=== PATIENT | female | born 1975 | race Caucasian/White ===

== ENCOUNTER 2018-05-06 09:48 | Emergency (ER) | payer OTHER ==
[2018-05-06 09:48] VITALS: BMI 28.3
[2018-05-06] MEDS ORDERED: Sodium Chloride 0.9% 1,000 ML IV STA (10:38)
[2018-05-06 11:03] LABS: BASO % 0.3 % (0.0-2.0); EOS % 0.1 % (0.0-4.0); HEMOGLOBIN 13.9 g/dL (12.0-16.0); LYMPH # 1.3 K/uL (1.0-4.3); LYMPH % 9.2 % (20.0-40.0); MEAN CELL VOLUME 86.6 fl (81.0-99.0); MEAN CORPUSCULAR HEMOGLOBIN 30.4 pg (27.0-31.0); MEAN CORPUSCULAR HGB CONC 35.1 g/dL (33.0-37.0); MEAN PLATELET VOLUME 8.6 fl (7.2-11.7); MONO # 0.6 K/uL (0.0-0.8); MONO % 4.1 % (0.0-10.0); NEUT # 12.3 K/uL (1.8-7.0); NEUT % 86.3 % (50.0-75.0); NRBC % 0.1 % (0.0-0.0); PLATELET COUNT 276 K/uL (130-400); RBC 4.59 Mil/uL (3.80-5.20); RED CELL DISTRIBUTION WIDTH 13.1 % (11.5-14.5); WHITE BLOOD COUNT 14.2 K/uL (4.8-10.8)
[2018-05-06 11:19] LABS: ALB/GLOB RATIO 1.1 (1.0-2.1); ALBUMIN 4.1 g/dL (3.5-5.0); ALT/SGPT 43 U/L (9-52); AST/SGOT 33 U/L (14-36); BLOOD UREA NITROGEN 8 mg/dl (7-17); CALCIUM 9.3 mg/dL (8.4-10.2); GFR NON-AFRICAN AMERICAN > 60; LIPASE 60 U/L (23-300)
--- NOTE | 2018-05-06 12:01 | ED PDOC ---
HPI:Nausea, Vomiting, Diarrhea History Per: Patient (Ms. Mireles is a 42 yo female who presents to the ER because of persistent nausea and vomiting that started 3 day ago. Patient the progressively started feeling tired, weak and that her head has been hurting and feeling heavy. Patient denies sick contact. She took one tab of nexium last night without improve) <Maria L Soriano - Last Filed: 05/06/18 15:06> <Shyam Mccoy Y - Last Filed: 05/06/18 18:20> Time Seen by Provider: 05/06/18 10:23 Chief Complaint (Nursing): Dizziness/Lightheaded Past Medical History Reviewed: Historical Data, Nursing Documentation, Vital Signs Vital Signs: Last Vital Signs Temp 97.8 F 05/06/18 11:39 Pulse 83 05/06/18 09:55 Resp 17 05/06/18 09:55 BP 127/86 05/06/18 11:07 Pulse Ox 99 05/06/18 09:55 - Medical History PMH: Gastritis Denies: Chronic Kidney Disease - Family History Family History: States: No Known Family Hx - Immunization History Hx Tetanus Toxoid Vaccination: No Hx Influenza Vaccination: No Hx Pneumococcal Vaccination: No <Maria L Soriano - Last Filed: 05/06/18 15:06> Vital Signs: Last Vital Signs Temp 98.6 F 05/06/18 16:09 Pulse 88 05/06/18 16:09 Resp 16 05/06/18 16:09 BP 125/81 05/06/18 16:09 Pulse Ox 100 05/06/18 16:09 <Shyam Mccoy Y - Last Filed: 05/06/18 18:20> - Allergies Allergies/Adverse Reactions: Allergies Allergy/AdvReac Type Severity Reaction Status Date / Time Penicillins Allergy ANAPHYLAXIS Verified 05/06/18 10:27 Review of Systems ROS Statement: Except As Marked, All Systems Reviewed And Found Negative Constitutional: Negative for: Fever, Chills Cardiovascular: Negative for: Chest Pain Gastrointestinal: Positive for: Nausea, Abdominal Pain Neurological: Positive for: Headache <Maria L Soriano - Last Filed: 05/06/18 15:06> Physical Exam - Reviewed Nursing Documentation Reviewed: Yes Vital Signs Reviewed: Yes - Physical Exam Appears: Positive for: Well, Non-toxic, No Acute Distress Head Exam: Positive for: ATRAUMATIC, NORMAL INSPECTION, NORMOCEPHALIC Skin: Positive for: Normal Color, Warm, DRY Eye Exam: Positive for: EOMI, Normal appearance, PERRL ENT: Positive for: Normal ENT Inspection Neck: Positive for: Normal, Painless ROM Cardiovascular/Chest: Positive for: Regular Rate, Rhythm Respiratory: Positive for: CNT, Normal Breath Sounds Gastrointestinal/Abdominal: Positive for: Normal Exam, Soft Back: Positive for: Normal Inspection Extremity: Positive for: Normal ROM Neurologic/Psych: Positive for: Alert, Oriented <Maria L Soriano - Last Filed: 05/06/18 15:06> - Laboratory Results Result Diagrams: 05/06/18 10:50 05/06/18 10:50 - ECG O2 Sat by Pulse Oximetry: 99 <Maria L Soriano - Last Filed: 05/06/18 15:06> - Laboratory Results Result Diagrams: 05/06/18 10:50 05/06/18 10:50 <Shyam Mccoy - Last Filed: 05/06/18 18:20> Disposition - Disposition Disposition: Transfer of Care Disposition Time: 15:06 Patient Signed Over To: Shyam Mccoy <Maria L Soriano - Last Filed: 05/06/18 15:06> <Shyam Mccoy - Last Filed: 05/06/18 18:20> - Clinical Impression Clinical Impression: Dizziness - Disposition Condition: STABLE Forms: [employer] (Kyrgyz)
[2018-05-06 12:12] LABS: BANDS 2 % (0-2); LYMPHOCYTE 6 % (20-50); MONOCYTE 6 % (0-10); NEUTROPHIL 82 % (42-75); PLATELET ESTIMATE NORMAL (NORMAL); REACTIVE LYMPHOCYTES 4 % (0-0); TOTAL CELLS COUNTED 100
[2018-05-06] MEDS ORDERED: Sodium Chloride 0.9% 50 ML IV ONE (12:35)
[2018-05-06] MEDS ORDERED: Iohexol 300 100 ML IJ ONE (12:35)
--- NOTE | 2018-05-06 13:34 | CT ---
Date of service: 05/06/2018 PROCEDURE: CT Abdomen and Pelvis with contrast HISTORY: bilateral LQ tenderness with elevated WBC COMPARISON: None. TECHNIQUE: Contrast dose: 95 mL Omnipaque 300. Radiation dose: Total exam DLP = 532.7 mGy-cm. This CT exam was performed using one or more of the following dose reduction techniques: Automated exposure control, adjustment of the mA and/or kV according to patient size, and/or use of iterative reconstruction technique. FINDINGS: LOWER THORAX: Unremarkable. LIVER: Hepatic steatosis. No gross lesion or ductal dilatation. GALLBLADDER AND BILE DUCTS: Distended gallbladder with wall thickening/edema. PANCREAS: Unremarkable. No gross lesion or ductal dilatation. SPLEEN: Unremarkable. ADRENALS: Unremarkable. No mass. KIDNEYS AND URETERS: Unremarkable. No hydronephrosis. No solid mass. VASCULATURE: Unremarkable. No aortic aneurysm. BOWEL: Unremarkable. No obstruction. No gross mural thickening. APPENDIX: Normal appendix. PERITONEUM: Small fat containing umbilical hernia. No free fluid. No free air. LYMPH NODES: Unremarkable. No enlarged lymph nodes. BLADDER: Unremarkable. REPRODUCTIVE: Prominent low-density tubular appearing structures in both adnexa. 1.9 cm low-density structure in the left ovary. BONES: No acute fracture. OTHER FINDINGS: None. IMPRESSION: Distended gallbladder with questionable wall thickening/edema. Gallbladder ultrasound can be obtained for further evaluation as clinically warranted. Prominent low-density tubular appearing structures in both adnexa may represent hydrosalpinx. 1.9 cm low-density structure in the left ovary. Pelvic ultrasound can be obtained for further evaluation as clinically warranted.
[2018-05-06 16:09] VITALS: O2SAT 100
--- NOTE | 2018-05-06 17:19 | US ---
Date of service: 05/06/2018 HISTORY: thickened GB on CT; elevated WBC COMPARISON: None. TECHNIQUE: Sonographic evaluation of the abdomen. FINDINGS: LIVER: Measures 13.7 cm. Normal echogenicity of the liver parenchyma. No mass. No intrahepatic bile duct dilatation. GALLBLADDER: Multiple gallstones present. No pericholecystic fluid or thickened gallbladder wall noted. No positive sonographic Valente sign present. COMMON BILE DUCT: Measures 4 mm. No stones. No dilatation. PANCREAS: Not well visualized-obscuring bowel gas. RIGHT KIDNEY: Measures 11.9 x 4.6 x 4.7cm. Normal echogenicity. No calculus, or mass. There is mainly right extra renal the mildly intrarenal pelviectasis. No prominent peripheral right caliectasis noted. LEFT KIDNEY: Measures 13.0 x 4.9 x 4.3 cm.Cm. Normal echogenicity. No calculus, mass, or hydronephrosis. SPLEEN: Normal in size and contour. No mass. AORTA: No gross aneurysm. IVC: Gross pathology noted OTHER FINDINGS: None. IMPRESSION: Multiple gallstones present. No gallbladder wall thickening or pericholecystic fluid. No positive sonographic Valente sign. No dilated ducts. Other findings as above.
--- NOTE | 2018-05-06 18:39 | ED PDOC ---
- Laboratory Results Result Diagrams: 05/06/18 10:50 05/06/18 10:50 - ECG O2 Sat by Pulse Oximetry: 100 Medical Decision Making Medical Decision Making: Time: 15:00 Patient care endorsed from Dr. Soriano to story writer pending US. Time: 17:17 FINDINGS: LIVER: Measures 13.7 cm. Normal echogenicity of the liver parenchyma. No mass. No intrahepatic bile duct dilatation GALLBLADDER: Multiple gallstones present. No pericholecystic fluid or thickened gallbladder wall noted. No positive sonographic Valente sign present. COMMON BILE DUCT: Measures 4 mm. No stones. No dilatation. PANCREAS: Not well visualized-obscuring bowel gas. RIGHT KIDNEY: Measures 11.9 x 4.6 x 4.7cm. Normal echogenicity. No calculus, or mass. There is mainly right extra renal the mildly intrarenal pelviectasis. No prominent peripheral right caliectasis noted. LEFT KIDNEY: Measures 13.0 x 4.9 x 4.3 cm.Cm. Normal echogenicity. No calculus, mass, or hydronephrosis. SPLEEN: Normal in size and contour. No mass. AORTA: No gross aneurysm. IVC: Gross pathology noted OTHER FINDINGS: None. IMPRESSION: Multiple gallstones present. No gallbladder wall thickening or pericholecystic fluid. No positive sonographic Valente sign. No dilated ducts. Other findings as above Time: 18:26 Diagnosis is Cholelithiasis pt currently in no pain. tolerated po. pt aware of CT report regarding the refractory tile helper findings and need for outpt refractory tile helper follow up. pt instructed to follow up with prim. zamora in clinic and from there- surgeon. Upon provider reevaluation patient is feeling better, is medically stable, and requires no further treatment in the ED at this time. Counseling was provided and all questions were answered regarding diagnosis and need for follow up with women's health clinic. There is agreement to discharge plan. Return if symptoms persist or worsen. Scribe Attestation: Documented by Christopher Marrero, acting as a scribe for Shyam Mccoy MD Provider Scribe Attestation: All medical record entries made by the Scribe were at my direction and personally dictated by me. I have reviewed the chart and agree that the record accurately reflects my personal performance of the history, physical exam, medic al decision making, and the department course for this patient. I have also personally directed, reviewed, and agree with the discharge instructions and disposition. Disposition - Clinical Impression Clinical Impression: Dizziness, Cholelithiasis - POA Present On Arrival: None - Disposition Disposition: Routine/Home Disposition Time: 18:45 Condition: IMPROVED Additional Instructions: follow up in the clinic - [facility] and Women's health within one week (due to tubular structures in the adnexa noted on CT) return to the ED with any worsening or concerning symptoms Instructions: Gallstones (DC) Forms: [employer] (Tajik) Print Language: SENEGALESE
[2018-05-06 18:48] VITALS: BP 136/84; PULSE 74; RESP 18; TEMP 98.3
== END 2018-05-06 18:40 | disposition home or self-care (01) ==
LOC: H.ER 09:48
DX: K80.20 Calculus of gallbladder without cholecystitis without obstruction (principal); R42 Dizziness and giddiness; Z88.0 Allergy status to penicillin
CPT/HCPCS: 74177; 76700; 80053; 81025; 83690; 85025; 96361; 96374; 96375; 99285; J2405; J7030; Q9967

== ENCOUNTER 2018-07-29 09:16 | Emergency (ER) | payer OTHER ==
[2018-07-29 09:16] VITALS: BMI 28.3
[2018-07-29] MEDS ORDERED: Sodium Chloride 0.9% 1,000 ML IV STA (09:39)
--- NOTE | 2018-07-29 09:42 | ED PDOC ---
HPI: Abdomen Time Seen by Provider: 07/29/18 09:30 Chief Complaint (Provider): Epigastric pain History Per: Patient History/Exam Limitations: no limitations Onset/Duration Of Symptoms: Days (2 days) Additional Complaint(s): Pt. with diarrhea, nonbloody and epigastric pain. No nausea, vomit, weakness, chest pain. No fever. No back pain, dysuria. No new food. Has gall stones. Past Medical History Reviewed: Nursing Documentation, Vital Signs Vital Signs: Last Vital Signs Temp 98.7 F 07/29/18 09:20 Pulse 84 07/29/18 09:20 Resp 18 07/29/18 09:20 BP 135/87 07/29/18 09:20 Pulse Ox 99 07/29/18 09:20 - Medical History PMH: Gastritis Denies: Chronic Kidney Disease Other PMH: gall stones - Surgical History Surgical History: No Surg Hx - Family History Family History: States: Unknown Family Hx - Immunization History Hx Tetanus Toxoid Vaccination: No Hx Influenza Vaccination: No Hx Pneumococcal Vaccination: No - Allergies Allergies/Adverse Reactions: Allergies Allergy/AdvReac Type Severity Reaction Status Date / Time Penicillins Allergy ANAPHYLAXIS Verified 05/06/18 10:27 Review of Systems ROS Statement: Except As Marked, All Systems Reviewed And Found Negative Gastrointestinal: Positive for: Abdominal Pain, Diarrhea Physical Exam - Reviewed Nursing Documentation Reviewed: Yes Vital Signs Reviewed: Yes - Physical Exam Appears: Positive for: Non-toxic, No Acute Distress Head Exam: Positive for: ATRAUMATIC, NORMAL INSPECTION, NORMOCEPHALIC Skin: Positive for: Normal Color, Warm, DRY Eye Exam: Positive for: EOMI, Normal appearance, PERRL ENT: Positive for: Normal ENT Inspection Neck: Positive for: Normal, Painless ROM Cardiovascular/Chest: Positive for: Regular Rate, Rhythm Respiratory: Positive for: CNT, Normal Breath Sounds Gastrointestinal/Abdominal: Positive for: Soft, Tenderness (epigastric mild) Back: Positive for: Normal Inspection Extremity: Positive for: Normal ROM Neurologic/Psych: Positive for: Alert, Oriented - Laboratory Results Result Diagrams: 07/29/18 10:07 07/29/18 10:07 Interpretation Of Abn Labs: no acute - ECG O2 Sat by Pulse Oximetry: 99 Pulse Ox Interpretation: Normal - CT Scan/US us Other Rad Studies (CT/US): Read By Radiologist Other Rad Interpretation: no acute - Progress ED Course And Treament: 1310: Stable. AAOx3. Pain free. Tolerated PO. FU with pcp. Disposition - Clinical Impression Clinical Impression: Abdominal pain, Diarrhea - Patient ED Disposition Is Patient to be Admitted: No Counseled Patient/Family Regarding: Studies Performed, Diagnosis, Need For Followup, Rx Given - Disposition Referrals: [facility] [Outside] - 07/30/18 Disposition: Routine/Home Disposition Time: 13:13 Condition: STABLE Additional Instructions: Return if not better in 3 days. Instructions: Diarrhea in Adolescents and Adults, Stomach Ache and Stomach Upset Print Language: [place]
[2018-07-29 10:19] LABS: BASO % 0.3 % (0.0-2.0); EOS % 0.5 % (0.0-4.0); HEMOGLOBIN 13.3 g/dL (12.0-16.0); LYMPH # 1.2 K/uL (1.0-4.3); LYMPH % 18.1 % (20.0-40.0); MEAN CELL VOLUME 90.1 fl (81.0-99.0); MEAN CORPUSCULAR HEMOGLOBIN 30.4 pg (27.0-31.0); MEAN CORPUSCULAR HGB CONC 33.7 g/dL (33.0-37.0); MEAN PLATELET VOLUME 9.4 fl (7.2-11.7); MONO # 0.6 K/uL (0.0-0.8); MONO % 8.8 % (0.0-10.0); NEUT # 4.8 K/uL (1.8-7.0); NEUT % 72.3 % (50.0-75.0); RBC 4.39 Mil/uL (3.80-5.20); WHITE BLOOD COUNT 6.7 K/uL (4.8-10.8)
[2018-07-29 10:24] LABS: ALB/GLOB RATIO 1.1 (1.0-2.1); ALBUMIN 3.9 g/dL (3.5-5.0); ALT/SGPT 38 U/L (9-52); AST/SGOT 30 U/L (14-36); BLOOD UREA NITROGEN 5 mg/dl (7-17); CALCIUM 8.8 mg/dL (8.4-10.2); GFR NON-AFRICAN AMERICAN > 60; LIPASE 69 U/L (23-300)
--- NOTE | 2018-07-29 12:45 | US ---
Date of service: 07/29/2018 HISTORY: RUQ pain hx of gall stones COMPARISON: None. TECHNIQUE: Sonographic evaluation of the right upper quadrant of the abdomen. FINDINGS: LIVER: Measures 13.8 cm in length. Normal echogenicity of the liver parenchyma. No mass. No intrahepatic bile duct dilatation. GALLBLADDER: Cholelithiasis without gallbladder wall thickening/edema or pericholecystic fluid. Sonographic Valente's sign was not elicited. COMMON BILE DUCT: Measures 5 mm. No stones. No dilatation. PANCREAS: Unremarkable as visualized. No mass. No ductal dilatation. RIGHT KIDNEY: Measures 11.5 x 4.7 x 4.6 cm in length. Normal echogenicity. Mild pelvic fullness versus hydronephrosis. No nephrolithiasis. AORTA: No aneurysmal dilatation. IVC: Unremarkable. OTHER FINDINGS: None . IMPRESSION: Cholelithiasis without sonographic evidence of acute cholecystitis. Mild right pelvic fullness versus mild hydronephrosis
[2018-07-29 13:45] VITALS: BP 126/78; PULSE 78; RESP 19; TEMP 97.6; O2SAT 98
== END 2018-07-29 13:45 | disposition home or self-care (01) ==
LOC: H.ER 09:16
DX: R10.13 Epigastric pain (principal); R19.7 Diarrhea, unspecified
CPT/HCPCS: 76705; 80053; 81025; 83690; 85025; 96374; 99283; J7030

== ENCOUNTER 2018-10-02 09:43 | Emergency (ER) | payer SELFPAY ==
[2018-10-02 09:46] VITALS: BMI 28.5
[2018-10-02 09:47] VITALS: BP 127/82; TEMP 98.2
--- NOTE | 2018-10-02 11:02 | ED PDOC ---
HPI: CCC, URI, Sore Throat Time Seen by Provider: 10/02/18 09:51 Chief Complaint (Nursing): ENT Problem Chief Complaint (Provider): Ear pain, congestion Additional Complaint(s): 43 yo female, no PMH, presents for evaluation of nasal congestion and dry cough x 2 weeks, 3 days now of bilateral ear pain left > R. Pt denies nay chest pain or SOB, no fever or chills. Past Medical History Reviewed: Nursing Documentation, Vital Signs Vital Signs: Last Vital Signs Temp 98.2 F 10/02/18 09:46 Pulse 111 H 10/02/18 09:46 Resp 17 10/02/18 09:46 BP 127/82 10/02/18 09:46 Pulse Ox 99 10/02/18 09:46 - Medical History PMH: No Chronic Diseases, Gastritis Denies: Chronic Kidney Disease - Surgical History Surgical History: No Surg Hx - Family History Family History: States: Unknown Family Hx - Living Arrangements Living Arrangements: With Family - Social History Current smoker - smoking cessation education provided: No Alcohol: None Drugs: Denies - Immunization History Hx Tetanus Toxoid Vaccination: No Hx Influenza Vaccination: No Hx Pneumococcal Vaccination: No - Home Medications Home Medications: Ambulatory Orders Medication Instructions Recorded Ciprofloxacin/Hydrocortisone 10 ml OT BID #1 sudha 10/02/18 [Cipro Hc 0.2%-1% 10 ml] Clindamycin [Cleocin] 300 mg PO BID #14 cap 10/02/18 Methylprednisolone [Medrol Dose 4 mg PO DAILY #21 mg 10/02/18 Pack (21 tabs)] - Allergies Allergies/Adverse Reactions: Allergies Allergy/AdvReac Type Severity Reaction Status Date / Time ampicillin Allergy RASH Verified 10/02/18 09:58 Penicillins Allergy ANAPHYLAXIS Verified 05/06/18 10:27 Review of Systems ROS Statement: Except As Marked, All Systems Reviewed And Found Negative ENT: Positive for: Ear Pain, Nose Congestion Respiratory: Positive for: Cough Physical Exam - Reviewed Nursing Documentation Reviewed: Yes Vital Signs Reviewed: Yes - Physical Exam Appears: Positive for: Well, Non-toxic, No Acute Distress Head Exam: Positive for: ATRAUMATIC, NORMAL INSPECTION, NORMOCEPHALIC Skin: Positive for: Normal Color, Warm, DRY Eye Exam: Positive for: EOMI, Normal appearance, PERRL ENT: Positive for: TM Is/Are (Erythematous bilateral), Nasal Congestion. Negative for: Pharyngeal Erythema, Tonsillar Exudate, Tonsillar Swelling Neck: Positive for: Normal, Painless ROM Cardiovascular/Chest: Positive for: Regular Rate, Rhythm Respiratory: Positive for: CNT, Normal Breath Sounds Gastrointestinal/Abdominal: Positive for: Normal Exam, Soft Back: Positive for: Normal Inspection Extremity: Positive for: Normal ROM Neurologic/Psych: Positive for: Alert, Oriented - ECG O2 Sat by Pulse Oximetry: 99 Medical Decision Making Medical Decision Making: Pt educated on supportive care measures. RX prescribed. Advised to return if symptoms worsen Disposition - Clinical Impression Clinical Impression: Otitis media, Cough - Patient ED Disposition Is Patient to be Admitted: No - Disposition Disposition: Routine/Home Disposition Time: 11:04 Condition: STABLE Prescriptions: Ciprofloxacin/Hydrocortisone [Cipro Hc 0.2%-1% 10 ml] 10 ml OT BID #1 sudha Clindamycin [Cleocin] 300 mg PO BID #14 cap Methylprednisolone [Medrol Dose Pack (21 tabs)] 4 mg PO DAILY #21 mg Instructions: Ear Infections (Otitis Media) (DC) Forms: [employer] (South Korean) Print Language: DIVEHI
[2018-10-02 11:09] VITALS: PULSE 81; RESP 18; O2SAT 100
--- NOTE | 2018-10-05 10:49 | ED PDOC ---
ED Additional Note - Date & Time of Evaluation Date of Evaluation: 10/05/18 Time of Evaluation: 10:45 - Physician Additional Note Physician Additional Note: Called by pharmacy re: Cipro otic drops being too expensive for patient. Prescription changed to Polymyxin B/Neomycin/Hydrocortisone otic drops 4 drops QID x 7 days.
== END 2018-10-02 11:07 | disposition home or self-care (01) ==
LOC: H.ER 09:43
DX: R05 Cough (principal); H66.90 Otitis media, unspecified, unspecified ear

== ENCOUNTER 2018-11-16 08:49 | Emergency (ER) | payer SELFPAY ==
[2018-11-16 08:52] VITALS: BMI 28.1
[2018-11-16 09:11] VITALS: O2SAT 98
--- NOTE | 2018-11-16 09:46 | ED PDOC ---
Lower Extremity Pain/Injury Time Seen by Provider: 11/16/18 09:08 Chief Complaint (Nursing): Lower Extremity Problem/Injury Chief Complaint (Provider): R knee pain History Per: Patient Additional Complaint(s): Pt reports pain and swelling to R side of R knee X 3 days, associated with pain to back of leg. Took Advil without relief. Denies trauma, paresthesias, weakness. Past Medical History Reviewed: Nursing Documentation, Vital Signs Vital Signs: Last Vital Signs Temp 98.6 F 11/16/18 08:52 Pulse 97 H 11/16/18 08:52 Resp 18 11/16/18 08:52 BP 139/88 11/16/18 08:52 Pulse Ox 98 11/16/18 09:09 - Medical History PMH: Gastritis Denies: Chronic Kidney Disease - Surgical History Surgical History: - Family History Family History: States: Unknown Family Hx - Social History Current smoker - smoking cessation education provided: No Alcohol: None - Immunization History Hx Tetanus Toxoid Vaccination: No Hx Influenza Vaccination: No Hx Pneumococcal Vaccination: No - Home Medications Home Medications: Ambulatory Orders Medication Instructions Recorded Ciprofloxacin/Hydrocortisone 10 ml OT BID #1 sudha 10/02/18 [Cipro Hc 0.2%-1% 10 ml] Clindamycin [Cleocin] 300 mg PO BID #14 cap 10/02/18 Methylprednisolone [Medrol Dose 4 mg PO DAILY #21 mg 10/02/18 Pack (21 tabs)] Naproxen [Naprosyn] 500 mg PO BID PRN #15 tablet 11/16/18 - Allergies Allergies/Adverse Reactions: Allergies Allergy/AdvReac Type Severity Reaction Status Date / Time ampicillin Allergy RASH Verified 11/16/18 09:07 Penicillins Allergy ANAPHYLAXIS Verified 11/16/18 09:07 Review of Systems Constitutional: Negative for: Fever Musculoskeletal: Positive for: Leg Pain Skin: Negative for: Rash, Lesions, Bruising Physical Exam - Reviewed Nursing Documentation Reviewed: Yes Vital Signs Reviewed: Yes - Physical Exam Appears: Positive for: Well, No Acute Distress Skin: Positive for: Normal Color, Warm, Dry Eye Exam: Positive for: Normal appearance, EOMI, PERRL Extremity: Positive for: Normal ROM, Capillary Refill (<2 sec), Swelling (R lateral knee). Negative for: Tenderness, Pedal Edema, Calf Tenderness, Deformity - ECG O2 Sat by Pulse Oximetry: 98 Medical Decision Making Medical Decision Makin yo female with R knee and posteior leg pain. - XR R knee - Doppler ultrasound - Naprosyn Accession No. 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 HISTORY: Right knee pain COMPARISON: None. TECHNIQUE: Three views obtained. FINDINGS: BONES: There is periarticular bone demineralization. There is no acute fracture or bone destruction. Bone alignment is normal. JOINTS: There is mild tricompartmental degenerative osteoarthrosis with reduced joint spaces, marginal osteophytes and tibial spiking, worse in the medial compartment. JOINT EFFUSION: None. OTHER FINDINGS: None. IMPRESSION: No acute fracture or dislocation. Mild tricompartmental degenerative osteoarthrosis, worse in the medial compartment. Accession No. 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 HISTORY: Posterior leg pain COMPARISON: None available. TECHNIQUE: Common femoral, superficial femoral, popliteal and posterior tibial veins were evaluated. Flow was assessed with color Doppler, compressibility, assessment of phasic flow and augmentation response. FINDINGS: COMMON FEMORAL VEIN: Unremarkable. SUPERFICIAL FEMORAL VEIN: Unremarkable. POPLITEAL VEIN: Unremarkable. POSTERIOR TIBIAL VEIN: Unremarkable. OTHER FINDINGS: None. IMPRESSION: No evidence of deep venous thrombosis in the right lower extremity. Disposition - Clinical Impression Clinical Impression: Osteoarthrosis - Disposition Referrals: [facility] [Outside] Disposition: Routine/Home Disposition Time: 11:32 Condition: IMPROVED Prescriptions: Naproxen [Naprosyn] 500 mg PO BID PRN #15 tablet PRN Reason: Pain, Moderate (4-7) Instructions: Osteoarthritis Forms: [employer] (Georgian) Print Language: INDIAN
[2018-11-16] MEDS ORDERED: Naproxen 500 MG TAB PO ONE (10:42)
--- NOTE | 2018-11-16 11:02 | US ---
Date of service: 11/16/2018 PROCEDURE: Right lower extremity venous duplex Doppler. HISTORY: Posterior leg pain COMPARISON: None available. TECHNIQUE: Common femoral, superficial femoral, popliteal and posterior tibial veins were evaluated. Flow was assessed with color Doppler, compressibility, assessment of phasic flow and augmentation response. FINDINGS: COMMON FEMORAL VEIN: Unremarkable. SUPERFICIAL FEMORAL VEIN: Unremarkable. POPLITEAL VEIN: Unremarkable. POSTERIOR TIBIAL VEIN: Unremarkable. OTHER FINDINGS: None. IMPRESSION: No evidence of deep venous thrombosis in the right lower extremity.
--- NOTE | 2018-11-16 11:12 | RAD ---
Date of service: 11/16/2018 PROCEDURE: Right Knee Radiographs. HISTORY: Right knee pain COMPARISON: None. TECHNIQUE: Three views obtained. FINDINGS: BONES: There is periarticular bone demineralization. There is no acute fracture or bone destruction. Bone alignment is normal. JOINTS: There is mild tricompartmental degenerative osteoarthrosis with reduced joint spaces, marginal osteophytes and tibial spiking, worse in the medial compartment. JOINT EFFUSION: None. OTHER FINDINGS: None. IMPRESSION: No acute fracture or dislocation. Mild tricompartmental degenerative osteoarthrosis, worse in the medial compartment.
[2018-11-16 11:42] VITALS: BP 120/70; PULSE 78; RESP 20; TEMP 98
== END 2018-11-16 11:45 | disposition home or self-care (01) ==
LOC: H.ER 08:49
DX: M17.11 Unilateral primary osteoarthritis, right knee (principal)